=== PATIENT | female | born 1965 | race Two or more races ===

== ENCOUNTER 2017-05-06 14:50 | Emergency (ER) | payer OTHER ==
[~2017-05-06] VITALS: Ht 167.6 cm; Wt 226.8 kg
[2017-05-06] MEDS ORDERED: ZANTAC300 MG PO (20:19)
[2017-05-06] MEDS ORDERED: LEVSIN/SL0.125 MG PO (20:19)
== END 2017-05-06 20:23 | disposition home or self-care (01) ==
LOC: ER 14:50
DX: R10.12 Left upper quadrant pain (principal)